=== PATIENT | male | born 1955 ===

== ENCOUNTER 2020-06-25 07:17 | Outpatient (CLI) | payer OTHER | END 2020-06-25 12:42 | disposition home or self-care (01) | LOC: NUCLEAR 07:17 | PROVIDERS: ATTEND Internal Medicine Cardiovascular Disease | DX: I10 Essential (primary) hypertension (principal); R07.89 Other chest pain; R94.31 Abnormal electrocardiogram [ECG] [EKG]; I11.9 Hypertensive heart disease without heart failure | CPT/HCPCS: 78452; 93017; A9500; J0153 ==

== ENCOUNTER 2023-02-22 12:41 | Outpatient (CLI) | payer OTHER | END 2023-02-22 12:44 | disposition home or self-care (01) | LOC: MRI 12:41 | PROVIDERS: ATTEND Orthopaedic Surgery | DX: S83.201A Bucket-handle tear of unspecified meniscus, current injury, left knee, initial encounter (principal) | CPT/HCPCS: 73721 ==

== ENCOUNTER → 2023-06-08 | Outpatient (CLI) | payer OTHER | END | disposition home or self-care (01) | LOC: RAD 15:26 | PROVIDERS: ATTEND Orthopaedic Surgery | DX: M54.59 Other low back pain (principal); M25.561 Pain in right knee; M25.562 Pain in left knee ==